=== PATIENT | female | born 1990 | race Caucasian/White ===

== ENCOUNTER → 2016-11-14 22:49 | Emergency (ER) | payer OTHER ==
[~2016-11-14 22:49] MED LIST: Tetan/Diph/Pertus SYR(Tdap)* 0.5 ML SYR(BOOSTRIX) use SYR IM ONE
[2016-11-14 22:54] VITALS: BP 122/84
[2016-11-14 23:26] LABS: Hematocrit 38 % (35-47); Hemoglobin 13.1 g/dl (12.0-16.0); Mean Corpuscular HGB Conc 35 g/dl (31-36); Mean Corpuscular Hemoglobin 31 pg (27-31); Mean Corpuscular Volume 90 fL (80-97); Mean Platelet Volume 8 um3 (7.4-10.4); Red Blood Count 4.22 10^6/ul (4.0-5.4); Red Cell Distribution Width 12 % (10.5-15); White Blood Count 8.4 10^3/ul (3.5-10.8)
[2016-11-14 23:30] LABS: Rapid HIV INT CONT QC Line Present
[2016-11-14 23:32] LABS: Manual Entry Verification ABI0007; Rapid HIV Kit Lot# H017003
[2016-11-14 23:37] LABS: ALT 14 U/L (7-52); AST 17 U/L (13-39); Albumin 4.3 g/dL (3.2-5.2); Alkaline Phosphatase 42 U/L (34-104); Anion Gap 7 mmol/L (2-11); BUN/Creatinine Ratio 14.7 (8-20); Blood Urea Nitrogen 11 mg/dL (6-24); CO2 Carbon Dioxide 25 mmol/L (22-32); Calcium 9.2 mg/dL (8.6-10.3); Chloride 103 mmol/L (101-111); EGFR African American 119.2 (>60); EGFR Non-African American 92.7 (>60); Glucose 88 mg/dL (70-100); Sodium 135 mmol/L (133-145); Total Protein 7.3 g/dL (6.4-8.9)
--- NOTE | 2016-11-15 00:14 | ED ---
- HPI Summary HPI Summary: 26F presents with needlestick to left 3rd finger. She was recapping the heparin and finger slipped and stuck self with dirty needle. The needle had been in the source patient before her. She does not beehives this is a high risk patient. Her tetanus is not up to date. She immediately washed the area with soap and water. The source patient . - History of Current Complaint Chief Complaint: EDExposureBodyFluid Stated Complaint: NEEDLE STICK/POSSIBLE CONTAMINATION Time Seen by Provider: 11/14/16 23:45 PMH/Surg Hx/FS Hx/Imm Hx Endocrine/Hematology History: Denies: Hx Anticoagulant Therapy Cardiovascular History: Denies: Hx Myocardial Infarction Infectious Disease History: No Infectious Disease History: Denies: Traveled Outside the [place] in Last 30 Days - Family History Known Family History: Negative: Blood Disorder - Social History Occupation: Employed Full-time Smoking Status (MU): Never Smoked Tobacco Review of Systems Negative: Fever Negative: Chest Pain Negative: Shortness Of Breath Positive: Other - needlestick All Other Systems Reviewed And Are Negative: Yes Physical Exam Triage Information Reviewed: Yes Vital Signs On Initial Exam: Initial Vitals Temp Pulse Resp BP Pulse Ox 97.5 F 86 16 122/84 98 11/14/16 22:52 11/14/16 22:52 11/14/16 22:52 11/14/16 22:52 11/14/16 22:52 Vital Signs Reviewed: Yes Appearance: Positive: Well-Appearing Skin: Positive: Warm, Dry, Other - small puncture wound on left 3rd finger Head/Face: Positive: Normal Head/Face Inspection Eyes: Positive: Normal, Conjunctiva Clear Respiratory/Lung Sounds: Positive: Breath Sounds Present Cardiovascular: Positive: RRR Musculoskeletal: Positive: Strength/ROM Intact - fingers, Other - capillary refill<2secs Diagnostics - Vital Signs Vital Signs Temp Pulse Resp BP Pulse Ox 11/14/16 22:52 97.5 F 86 16 122/84 98 - Laboratory Lab Results: Lab Results 11/14/16 11/14/16 11/14/16 Range/Units 23:00 23:00 23:03 WBC 8.4 (3.5-10.8) 10^3/ul RBC 4.22 (4.0-5.4) 10^6/ul Hgb 13.1 (12.0-16.0) g/dl Hct 38 (35-47) % MCV 90 (80-97) fL MCH 31 (27-31) pg MCHC 35 (31-36) g/dl RDW 12 (10.5-15) % Plt Count 267 (150-450) 10^3/ul MPV 8 (7.4-10.4) um3 Neut % (Auto) 61.0 (38-83) % Lymph % (Auto) 29.4 (25-47) % [place] % (Auto) 7.2 (1-9) % Eos % (Auto) 1.6 (0-6) % Baso % (Auto) 0.8 (0-2) % Absolute Neuts (auto) 5.1 (1.5-7.7) 10^3/ul Absolute Lymphs (auto) 2.5 (1.0-4.8) 10^3/ul Absolute Monos (auto) 0.6 (0-0.8) 10^3/ul Absolute Eos (auto) 0.1 (0-0.6) 10^3/ul Absolute Basos (auto) 0.1 (0-0.2) 10^3/ul Absolute Nucleated RBC 0.01 10^3/ul Nucleated RBC % 0.1 Sodium 135 (133-145) mmol/L Potassium 4.0 (3.5-5.0) mmol/L Chloride 103 (101-111) mmol/L Carbon Dioxide 25 (22-32) mmol/L Anion Gap 7 (2-11) mmol/L BUN 11 (6-24) mg/dL Creatinine 0.75 (0.51-0.95) mg/dL Est GFR ( Amer) 119.2 (>60) Est GFR (Non-Af Amer) 92.7 (>60) BUN/Creatinine Ratio 14.7 (8-20) Glucose 88 (70-100) mg/dL Calcium 9.2 (8.6-10.3) mg/dL Total Bilirubin 0.40 (0.2-1.0) mg/dL AST 17 (13-39) U/L ALT 14 (7-52) U/L Alkaline Phosphatase 42 (34-104) U/L Total Protein 7.3 (6.4-8.9) g/dL Albumin 4.3 (3.2-5.2) g/dL Globulin 3.0 (2-4) g/dL Albumin/Globulin Ratio 1.4 (1-3) Beta HCG, Quant < 0.60 mIU/mL Hepatitis B Antibody Pending Hep Bs Antigen Pending Hep Bs Antibody, Quant Pending Hepatitis C Antibody Pending HIV 1&2 Antibody Rapid Nonreactive (Nonreactive) Result Diagrams: 11/14/16 23:00 11/14/16 23:00 Lab Statement: Any lab studies that have been ordered have been reviewed, and results considered in the medical decision making process. Needlestick Course/Dx - Course Course Of Treatment: 26F presents with needlestick to left 3rd finger. She was recapping the heparin and finger slipped and stuck self with dirty needle. The needle had been in the source patient before her. She does not beehives this is a high risk patient. Her tetanus is not up to date. She immediately washed the area with soap and water. The source patient . has small puncture wound on finger. gave tetanus. patient HIV negative and source patient negative. discussed that do not low risk patient and neg source patient no PEP is required. patient understands and agrees with plan. - Diagnoses Provider Diagnoses: Needlestick injury accident Discharge - Discharge Plan Condition: Good Disposition: HOME Referrals: Stefany Dawson NP [Primary Care Provider] - Additional Instructions: HIV negative. you do not need ppx.
== END | disposition home or self-care (01) ==
LOC: ED 22:49
DX: S61.233A Puncture wound without foreign body of left middle finger without damage to nail, initial encounter (principal); W46.1XXA Contact with contaminated hypodermic needle, initial encounter; Y93.9 Activity, unspecified; Y92.239 Unspecified place in hospital as the place of occurrence of the external cause
CPT/HCPCS: 36415; 80053; 84702; 85025; 86703; 86706; 86803; 87340; 90471; 90715; 99281

== ENCOUNTER → 2018-12-26 | Day surgery (SDC) | payer BC ==
[~2018-12-26] MED LIST changes: +Buffered Lidocaine 1% SYRIN* 1 ML/SYRINGE INTRADERM ONE; +DOXYcycline IV 200 MG in NS 250 mL *Pre-Op OBGYN IVPB ONE; +DiMENhydriNATE IV* 50 MG/ML VIAL ONE; +Famotidine IV* 10 MG/ML 2 ML (20 mg) IV ONE; +Famotidine IV* 10 MG/ML 2 ML (20 mg) ONE; +Ibuprofen TAB* 600 MG PO PRN; +KETAMINE HCL* 50 MG/ML 10 ML VIAL ONE; +Ketorolac INJ* 30 MG/ML 1 ML VIAL ONE; +Lactated Ringers 1000 ML Bag* 1,000 ML IV SCH; +Midazolam* 1 MG/ML 5 ML VIAL (5 MG) ONE; +Ondansetron INJ* 2 MG/ML VIAL ONE; +Propofol* 10 MG/ML 20 ML BTL ONE; -Tetan/Diph/Pertus SYR(Tdap)* 0.5 ML SYR(BOOSTRIX) use SYR IM ONE; +fentaNYL* 50 MCG/ML 2 ML VIAL (100 MCG VIAL) ONE
[2018-12-26 12:16] VITALS: BP 110/75
--- NOTE | 2018-12-26 13:49 | OP ---
DATE OF OPERATION: 12/26/18 - [facility] DATE OF : 88 SURGEON: Kris Lugo MD PRE-OP DIAGNOSIS: Embedded Paragard IUD. POST-OP DIAGNOSIS: Embedded Paragard IUD. OPERATIVE PROCEDURE: Removal of Paragard IUD under anesthesia. FINDINGS: Midline cervix. IUD arms embedded in the endocervical canal. IUD was intact upon removal with both strings present. COMPLICATIONS: None. COUNTS: Sponge count correct x2. CONDITION: The patient was brought to recovery room awake and in stable condition. DESCRIPTION OF PROCEDURE: The patient was brought to the operating room. Urine test was confirmed to be negative. Time-out was performed. The patient had received a prophylactic dose of IV doxycycline. After time-out was performed, the patient was prepped and draped in the usual sterile fashion in the dorsal lithotomy position. Exam under anesthesia was performed. The IUD strings were readily visible. The strings were grasped with a polyp forceps. Initially with gentle traction, the IUD did not descend at all. With gentle rocking back and forth and gentle traction, the IUD was removed. No cervical dilation or hysteroscopy was required. The IUD was examined and found to be intact. There was no bleeding from inside the cervix. The patient tolerated the procedure well. Sponge, lap, and needle count were correct x2, and the patient was brought to recovery room awake and in stable condition. [id number]/[facility] #: [id number] KARINA
== END | disposition home or self-care (01) ==
LOC: OR 08:14
PROVIDERS: ATTEND Obstetrics & Gynecology
DX: T83.32XA Displacement of intrauterine contraceptive device, initial encounter (principal); F41.9 Anxiety disorder, unspecified
CPT/HCPCS: 81025; J1240; J1885; J2250; J2405; J2704; J3010